=== PATIENT | male | born 1980 | race Caucasian/White ===

== ENCOUNTER 2017-10-18 13:59 | Inpatient (IN) | payer OTHER ==
[~2017-10-18] VITALS: Ht 167.6 cm; Wt 93.2 kg
[2017-10-18 14:47] LABS: BASOPHIL (%) 0.2 % (0-1); EOSINOPHIL (%) 0.7 % (0-5); EOSINOPHIL COUNT 0.1 K/uL (0-0.3); HEMATOCRIT 45.2 % (38.0-50.0); HEMOGLOBIN 15.5 G/DL (12.5-16.6); IMMATURE GRANULOCYTE (%) 0.8 % (0.0-0.7); LYMPHOCYTE COUNT 3.2 K/uL (1.0-2.8); MCH 28.1 PG (29.0-34.0); MCHC 34.3 G/DL (30.0-36.0); MONOCYTE (%) 5.2 % (3-12); MONOCYTE COUNT 0.6 K/uL (0-0.8); NEUTROPHIL (%) 66.1 % (45-76); NEUTROPHIL COUNT 7.9 K/uL (1.8-6.4); PLATELET COUNT 300 K/uL (156-360); RBC DIS.WIDTH-CV 12.8 % (11.8-14.6); RBC DIS.WIDTH-SD 38.4 % (39-53); RED BLOOD COUNT 5.51 M/uL (4.00-5.50); WHITE BLOOD COUNT 11.9 K/uL (4.1-10.2)
[2017-10-18 14:52] LABS: AMYLASE 55 IU/L (1-118); CHLORIDE 103 mEq/L (99-109); SODIUM 137 mEq/L (136-147)
[2017-10-18 14:54] LABS: GLUCOSE 105 mg/dL (70-99)
[2017-10-18 14:57] LABS: SERUM ETHYL ALCOHOL < 10 mg/dL
[2017-10-18 14:58] LABS: CREATININE 1.2 mg/dL (0.6-1.3); GFR ESTIMATE (CALCULATED) > 59 mL/min/ (58.99-99999)
[2017-10-18 14:59] LABS: UREA NITROGEN (BUN) 14 mg/dL (9-23)
[2017-10-18 15:01] LABS: LIPASE 33 U/L (1.0-51.0)
[2017-10-18 18:42] LABS: APPEARANCE CLEAR ((CLEAR)); BILIRUBIN NEGATIVE; BLOOD SMALL; COLOR YELLOW ((YELLOW)); GLUCOSE (STRIP) NEGATIVE; KETONES 20; LEUKOCYTES NEGATIVE; NITRITE NEGATIVE; PROTEIN (STRIP) 100
[2017-10-18 18:49] LABS: BACTERIA NONE SEEN /HPF; EPITHELIAL CELLS NONE SEEN /HPF; MUCUS NONE SEEN /LPF; RED BLOOD CELLS 20-30 /HPF (0-5); UCUL ADDED? NO; WHITE BLOOD CELLS 0-5 /HPF (0-5)
[2017-10-18 18:52] LABS: AMPHETAMINE NEGATIVE (500 ng/mL); BARBITURATES NEGATIVE (200 ng/mL); BENZODIAZEPINES NEGATIVE (150 ng/mL); BUPRENORPHINE NEGATIVE (10 ng/mL); COCAINE NEGATIVE (150 ng/mL); METHADONE NEGATIVE (200 ng/mL); METHAMPHETAMINE NEGATIVE (500 ng/mL); OPIATES (MORPHINE) PRESUMPTIVE POSITIVE (100 ng/mL); OXYCODONE NEGATIVE (100 ng/mL); PHENCYCLIDINE NEGATIVE (25 ng/mL); PROPOXYPHENE NEGATIVE (300 ng/mL); THC CANNABINOIDS NEGATIVE (50 ng/mL); TRICYCLIC ANTIDEPRESSANTS NEGATIVE (300 ng/mL)
[2017-10-18 19:10] LABS: SPECIFIC GRAVITY 1.074 (1.000-1.030)
[2017-10-18 20:14] VITALS: BP 120/56
[2017-10-18 23:35] VITALS: BP 125/57
[2017-10-19 03:51] VITALS: BP 99/58
[2017-10-19 06:29] LABS: ALBUMIN 3.8 G/DL (3.2-4.8); ALKALINE PHOSPHATASE 44 IU/L (3-129); ALT (GPT) 33 IU/L (3-49); AST (GOT) 26 IU/L (2-34); CHLORIDE 103 MEQ/L (99-109); GFR ESTIMATE (CALCULATED) > 59 mL/min/ (58.99-99999); GLUCOSE 119 mg/dL (70-99); POTASSIUM 3.9 MEQ/L (3.7-5.4); SODIUM 138 MEQ/L (136-147); TOTAL PROTEIN 5.7 G/DL (6.4-8.3); UREA NITROGEN (BUN) 15 mg/dL (9-23)
[2017-10-19 06:53] LABS: HEMATOCRIT 38.8 % (38.0-50.0); HEMOGLOBIN 12.7 G/DL (12.5-16.6); MCH 27.1 PG (29.0-34.0); MCHC 32.7 G/DL (30.0-36.0); MCV 82.9 FL (86-99); PLATELET COUNT 240 K/uL (156-360); RBC DIS.WIDTH-CV 13.2 % (11.8-14.6); RBC DIS.WIDTH-SD 40.1 % (39-53); RED BLOOD COUNT 4.68 M/uL (4.00-5.50); WHITE BLOOD COUNT 12.7 K/uL (4.1-10.2)
[2017-10-19 08:00] VITALS: BP 105/67
[2017-10-19] MEDS ORDERED: CHLORZOXAZONE500 MG PO (10:47)
[2017-10-19] MEDS ORDERED: OXYCODONE HCL5 MG PO (10:47)
[2017-10-19] MEDS ORDERED: SENNA LAX8.6 MG PO (10:47)
[2017-10-19] MEDS ORDERED: DIAZEPAM5 MG PO (10:47)
[2017-10-19] MEDS ORDERED: AZITHROMYCIN500 M1 PO (10:59)
== END 2017-10-19 12:11 | disposition home or self-care (01) | DRG 964 ==
LOC: TRA 13:59 → EDOF 18:01 → ENRESERV 18:03 → 3EAST 19:38
PROVIDERS: Emergency Medicine; Surgery
DX: S27.321A Contusion of lung, unilateral, initial encounter (principal); S32.028A Other fracture of second lumbar vertebra, initial encounter for closed fracture; S32.018A Other fracture of first lumbar vertebra, initial encounter for closed fracture; S32.038A Other fracture of third lumbar vertebra, initial encounter for closed fracture; R09.02 Hypoxemia; G47.33 Obstructive sleep apnea (adult) (pediatric); R31.29 Other microscopic hematuria; R91.1 Solitary pulmonary nodule; W13.2XXA Fall from, out of or through roof, initial encounter; I10 Essential (primary) hypertension; E66.9 Obesity, unspecified; Z68.33 Body mass index [BMI] 33.0-33.9, adult; S37.019A Minor contusion of unspecified kidney, initial encounter
CPT/HCPCS: 70450; 71260; 72125; 72129; 72132; 73070; 74177; 80048; 80053; 81003; 82150; 83690; 84999; 85025; 85027; 86850; 86900; 86901; 94660; 99281; 99285; G0480; J1170; J1650; J2405; J3010; J7120